=== PATIENT | male | born 1975 | race African-American/Black ===

== ENCOUNTER 2022-03-08 06:17 | Emergency (ER) | payer MEDICAID, OTHER ==
[~2022-03-08] VITALS: Ht 188 cm; Wt 99.8 kg
[2022-03-08] MEDS ORDERED: KETOROLAC TROMETH 30 MG/ML 1ML VIAL IV ONE (07:30)
[2022-03-08] MEDS ORDERED: HYDROcodone-ACET 5/325MG TAB PO ONE (07:30)
[2022-03-08 09:00] VITALS: BP 117/69
[2022-03-08] MEDS ORDERED: HYDR-4902 PO (09:10)
== END 2022-03-08 09:53 | disposition home or self-care (01) ==
LOC: ER 06:17
DX: M79.604 Pain in right leg (principal); Z86.711 Personal history of pulmonary embolism
CPT/HCPCS: 96374; 99283; J1885